=== PATIENT | male | born 1955 | race Caucasian/White ===

== ENCOUNTER 2022-09-14 05:55 | Emergency (ER) | payer OTHER ==
[~2022-09-14] VITALS: Ht 177.8 cm; Wt 90.3 kg
== END 2022-09-14 07:52 | disposition home or self-care (01) ==
LOC: ER 05:55
DX: M54.32 Sciatica, left side (principal); I10 Essential (primary) hypertension
CPT/HCPCS: 93971

== ENCOUNTER 2023-02-10 05:45 | Emergency (ER) | payer OTHER ==
[~2023-02-10] VITALS: Ht 177.8 cm; Wt 95.2 kg
[2023-02-10] MEDS ORDERED: CEPH500 PO (06:19)
[2023-02-10 06:25] VITALS: BP 144/99
== END 2023-02-10 06:26 | disposition home or self-care (01) ==
LOC: ER 05:45
DX: L03.116 Cellulitis of left lower limb (principal); I10 Essential (primary) hypertension
CPT/HCPCS: 99283

== ENCOUNTER 2023-05-11 08:23 | Day surgery (SDC) | payer OTHER ==
[2023-05-11] VITALS (18 sets, daily range): BP systolic 86–189; BP diastolic 71–105
[~2023-05-11] VITALS: Wt 92.5 kg
[~2023-05-11 08:23] MED LIST: ATOR10 PO; CEPH500 PO; Diclofenac Pota50 MG PO; LISI5 PO; METF500 PO
[2023-05-11] MEDS ORDERED: DICL75ER PO (08:48)
--- NOTE | 2023-05-11 14:25 | NUR ---
PATIENT ARRIVED TO THE FLOOR AT 1300. POD 0 LEFT TOTAL HIP PATIENT IS A&OX4. VS ARE WNL AND IS ON RA. PATIENT HAD A SPINAL DURING PROCEDURE AND HAS NO FEELING FROM THE TOP OF THIGH DOWN. HOWEVER, IS ABLE TO MOVE FINGERS/TOES WHEN ASKED. PEDAL PULSES ARE STRONG. HE DENIES PAIN AT THIS TIME. HE IS TOLERATING PO INTAKE. HE IS LAYING IN BED WITH CALL LIGHT IN REACH.
--- NOTE | 2023-05-11 15:16 | NUR ---
SHIFT SUMMARY: POD 0 LEFT TOTAL HIP PATIENT IS A&OX4. VS ARE WNL AND IS ON RA. PATIENT DENIES PAIN AND REFUSES PAIN MEDICATIONS AT THIS TIME. HIS LEFT HIP HAS AN AQUACEL THAT IS C/D/I WITH POLAR PACK IN PLACE. PATIENT REPORTS SLIGHT NUMBNESS IN HIS BLE BUT AND CAN MOVE ALL FINGERS AND TOES. HE IS TOLERATING PO INTAKE. PATIENT IS LAYING IN BED WITH CALL LIGHT IN REACH.
[2023-05-12 03:58] VITALS: BP 163/97
[2023-05-12 04:17] LABS: BASOPHILS ABSOLUTE AUTO 0.01 K/mm3 (0.00-0.23); BASOPHILS PERCENT AUTO 0 % (0-2); EOSINOPHILS PERCENT AUTO 0 % (0-6); Hematocrit 37.7 % (37.0-53.0); Hemoglobin 12.8 g/dL (13.5-17.5); IMMATURE GRAN ABSOLUTE AUTO 0.05 K/mm3 (0.00-0.10); IMMATURE GRAN PERCENT AUTO 0 % (0-1); LYMPHOCYTES ABSOLUTE AUTO 1.31 K/mm3 (0.84-5.20); LYMPHOCYTES PERCENT AUTO 10 % (21-46); MONOCYTES ABSOLUTE AUTO 0.78 K/mm3 (0.16-1.47); MONOCYTES PERCENT AUTO 6 % (4-13); Mean Corpuscular Volume 86 fL (80-100); Mean Platelet Volume 9.7 fL (9.1-12.4); NEUTROPHILS ABSOLUTE AUTO 11.26 K/mm3 (1.96-9.15); NEUTROPHILS PERCENT AUTO 84 % (41-73); Platelet Count 138 K/mm3 (150-400); RDW Coefficient Variation 14.4 % (11.7-14.2); RDW Standard Deviation 44.9 fL (35.1-46.3); Red Blood Cell Count 4.41 M/mm3 (4.30-5.90); White Blood Cell Count 13.41 K/mm3 (4.00-11.30)
[2023-05-12 04:33] LABS: Bun/Creatinine Ratio 27.2 (12.0-20.0); Calcium, Blood 8.4 mg/dL (8.5-10.1); Creatinine, Blood 0.77 mg/dL (0.60-1.20); Potassium, Blood 4.6 mmol/L (3.5-5.5)
--- NOTE | 2023-05-12 07:03 | NUR ---
POD 1 S/P L ANSLEY. PT VSS T/O NIGHT. DRESSING TO LEFT HIP CDI, SITE SOFT TO PALP. PULSES AND CAP REFILL WNL, PT REP SENSATION AT BASELINE. PAIN MGD PER EMAR W/REP RELIEF. PT HENRY REG PO, IS VOIDING URINE W/O DIFFICULTY. PT AMB IN HALLS SEVERAL TIMES, HENRY WELL. PLAN TO MOBILIZE W/PT AND D/C HOME WHEN CLEARED.
[2023-05-12 07:44] VITALS: BP 154/102
[2023-05-12] MEDS ORDERED: Percocet 5-3251 EACH PO (09:13)
[2023-05-12] MEDS ORDERED: ASPI81CH PO (09:14)
--- NOTE | 2023-05-12 11:10 | NUR ---
DISCHARGE SUMMARY POD1 R ANSLEY, A/OX4, VSS,T OLERATING PO, VOIDING WELL, PAIN WELL MANAGED, DOING WELL WITH AMBULATION BUT HE DOES GET IMPULSIVE TRYING TO GET UP WITHOUT HIS WALKER OR CALLING STAFF FOR ASSISTANCE. EDUCATION PROVIDED ON SAFETY WHILE AMBULATION BY NURSING STAFF AND PHYSICAL THERAPY. DISCUSSED DISCHARGE INSTRUCTIONS WITH HIM INCLUDING HOME CARE, DRESSING CHANGES, MEDICATIONS, SAFTY WITH AMBULATION, RISKS OF FALLS AND POTENTIAL COMPLICATIONS IF HE WAS TO FALL, AND FOLLOW UP APPOINTMENTS. NO QUESTIONS AT THIS TIME. PACKED UP PERSONAL ITEMS, IV REMOVED, ESCORTED OUT VIA WC TO PRIVATE AUTO TO GO HOME.
== END 2023-05-12 09:56 | disposition home or self-care (01) ==
LOC: ORSCMMR 08:23 → ORD 09:15 → ORSCMMR 10:00 → SURS 13:48 → ORSCMMR 05-12 09:56
PROVIDERS: Orthopaedic Surgery
PROC: 0SRB0JZ Replacement of Left Hip Joint with Synthetic Substitute, Open Approach (ICD-10-PCS; principal; 2023-05-11 10:00)
DX: M16.12 Unilateral primary osteoarthritis, left hip (principal); I10 Essential (primary) hypertension; E11.9 Type 2 diabetes mellitus without complications; B19.20 Unspecified viral hepatitis C without hepatic coma; Z79.84 Long term (current) use of oral hypoglycemic drugs; Z79.899 Other long term (current) drug therapy
CPT/HCPCS: 36415; 72170; 80048; 82947; 85025; 97110; 97116; 97161; 97530; A9270; C1713; C1776; J0171; J0690; J0735; J1100; J1815; J1885; J2250; J2371; J2405; J2704; J2795; J3010; J7120